=== PATIENT | female | born 1945 | race Caucasian/White ===

== ENCOUNTER → 2016-11-25 | Outpatient (CLI) | payer OTHER ==
--- NOTE | 2016-11-25 11:06 | MA ---
Diagnostic Digital Mammogram Left Breast With iCAD Analysis Clinical Indications: Followup probably benign microcalcifications in a 71-year-old female with a his tory of lumpectomy and radiation. Technique: Magnification cephalocaudal and mediolateral oblique projections of the left breast are o btained. This examination is processed by the iCAD computer aided detection system. Comparison: May 13, 2016 and May 10, 2015. Breast density: Type 2; 25 to 50%. Findings: CAD was reviewed. Magnification views confirm benign appearing microcalcifications in the p osterior upper outer left breast. These have a rounded characterization and presumably represent evol ving benign calcifications associated with posttreatment fat necrosis. Impression: Benign six-month mammographic followup, BI-RADS 2. Recommendation: Resume routine mammographic screening in April 2017 as long as physical examination is negative. A verbal report was given to the patient. [facility] will send a result letter to the patient.
== END ==
LOC: FIMAGING 09:50
PROVIDERS: ATTEND Surgery
DX: R92.1 Mammographic calcification found on diagnostic imaging of breast (principal)
CPT/HCPCS: G0206

== ENCOUNTER → 2017-06-09 | Outpatient (CLI) | payer OTHER | LOC: FIMAGING 10:49 | PROVIDERS: ATTEND Family Medicine | DX: Z12.31 Encounter for screening mammogram for malignant neoplasm of breast (principal); Z85.3 Personal history of malignant neoplasm of breast; Z80.3 Family history of malignant neoplasm of breast | CPT/HCPCS: G0202 ==

== ENCOUNTER → 2018-11-22 | Outpatient (CLI) | payer OTHER | LOC: BMCIMAGING 09:41 | PROVIDERS: ATTEND Internal Medicine Hematology & Oncology | DX: Z13.820 Encounter for screening for osteoporosis (principal); Z78.0 Asymptomatic menopausal state ==